=== PATIENT | female | born 1980 | race Caucasian/White ===

== ENCOUNTER 2016-11-28 19:01 | Emergency (ER) | payer OTHER ==
[2016-11-28 20:09] LABS: Hematocrit 43.3 % (37.0-47.0); Hemoglobin 14.4 gm/dL (12.5-16.0); Mean Cell Volume 91.4 fl (78-100); Mean Corpuscular Hemoglobin 30.4 pg (27-31); Mean Corpuscular Hgb Conc 33.3 g/dl (32-36); Mean Platelet Volume 9.8 fl (6.0-9.5); Neutrophil # 4.2 K/mm3 (1.3-6.0); Neutrophil % 50.1 % (42-75.0); Platelet Count 274 K/mm3 (150-450); Red Blood Count 4.74 M/mm3 (4.2-5.4); White Blood Count 8.4 K/mm3 (4.0-10.5)
--- NOTE | 2016-11-28 20:16 | ERNOTE ---
Medical Problem HPI - Narrative Date of Service: 11/28/16 - General Chief Complaint: General Assessment Time Seen by Provider: 11/28/16 19:47 Source: patient Exam Limitations: no limitations - Immun/Allergies/Home Medications Immunizations: IMMUNIZATION HX Immunizations Up to Date Yes History of Influenza Vaccine No Hx Pneumococcal Vaccination No Allergies/Adverse Reactions: Allergies azithromycin Allergy (Verified 11/07/15 18:06) cephalexin [Cephalexin] Allergy (Verified 11/07/15 18:06) morphine Allergy (Verified 11/07/15 18:06) ivp dye Allergy (Uncoded 11/07/15 18:06) Home Medications: HOME MEDICATIONS HYDROcodone/ACETAMINOPHEN [Hydrocodon-Acetaminophn 10-325] 1 tab PO Q6H PRN [Last Taken Unknown] - History of Present History Narrative: Pt. comes in with c/o generalized malaise and intermittent fever and chills, Intermittent chest pain and SOB, but denies any recent illness or injuries.Pt. denies any alleviating factors or prehospaitl treatment. Review of Systems - Review of Systems Constitutional: Present: fever, chills, weakness, fatigue, malaise EYE: Present: no symptoms reported ENT: Present: sore throat. Absent: nose congestion, nasal drainage Respiratory: Present: shortness of breath, cough. Absent: orthopnea, wheezing Cardiology: Present: chest pain. Absent: palpitations, edema Gastrointestinal/Abdominal: Present: no symptoms reported. Absent: nausea, vomiting, diarrhea, abdominal pain Genitourinary: Present: no symptoms reported Musculoskeletal: Present: back pain, muscle pain, joint pain. Absent: neck pain Skin: Present: no symptoms reported. Absent: rash, change in hair/nails Neurological: Present: no symptoms reported. Absent: headache, dizziness/light- headedness, weakness, numbness, tingling All Other Systems: All systems neg except as marked - Patient's Past Medical History Patient History - Medical: Chronic Pain, Other Patient History - Cardiac/Respiratory: Arrhythmias, Asthma, Deep Vein Thrombosis Patient History - Cancer: Cervical Patient History - Surgical Procedures: Cholecystectomy, Tubal Ligation, T & A Patient History - Other: None LMP (females 10-50): last week LMP (Calendar): 09/07/15 - Family History Father Family History - Medical: Mother Family History - Cardiac/Respiratory: COPD, Hypertension - Social History Living Situations: home Abuse History: No History of abuse Psych History: No pertinent hx Does anyone smoke in the home?: Yes Smoking Status: Current every day smoker Patient requests Smoking Cessation Consult: No Initiate information on Smoking Cessation: No Alcohol Use: none Drug Use: none - Immunizations Immunizations Up to Date: Yes Hx Pneumococcal Vaccination: No History of Influenza Vaccine: No Physical Exam - Physical Exam General Appearance: Present: wd/wn, alert, no apparent distress Eye Exam: Normal inspection: bilateral, PERRL: bilateral, EOMI: bilateral Ears, Nose, Throat: Present: normal ENT inspection, normal pharynx Neck: Present: normal inspection, nontender. Absent: lymphadenopathy (R), lymphadenopathy (L) Respiratory: Present: no respiratory distress, normal breath sounds, no accessory muscle use, chest nontender, lungs clear Cardiovascular/Chest: Present: regular rate, rhythm, no murmur, normal peripheral pulses ED Progress - Date and Time Seen: Date and Time: 11/28/16 21:05 Discussed with pt. that I feel that this is likely fibromyalgia. Pt. does not want to try any medications at this time and would like to discuss with her PCP first. Will discharge pt. home with instructions to follow up. - Results and Orders Patient's Lab Results:: I have reviewed the patient's lab results. - Vital Signs Patient's Vital Signs:: I have reviewed the patient's vital signs. Vital Signs: Vital Signs 11/28/16 19:20 Temperature 37.2 C Pulse Rate 65 Respiratory 18 Rate Blood Pressure 118/68 O2 Sat by Pulse 98 Oximetry - Progress/Reassessment Chief Complaint: General Assessment Progress:: Unchanged Departure - Departure Clinical Impression: Fibromyalgia Disposition: Home self-care Condition: Good Instructions: Muscle Pain, Adult Additional Instructions: Please follow up with primary provider as planned to discuss treatment
[2016-11-28 20:24] LABS: Urine Bilirubin Negative (NEGATIVE); Urine Ketone Negative (NEGATIVE); Urine Nitrite Negative (NEGATIVE); Urine Protein Negative (NEGATIVE); Urine Specific Gravity 1.015 SP.GR. (1.005-1.010); Urine Urobilinogen Normal (NORMAL)
[2016-11-28 20:28] LABS: Troponin I Less than 0.017 ng/ml (0.00-0.10)
[2016-11-28 20:31] LABS: ALT 24 U/L (19-67); AST 12 U/L (0-48); Albumin * 3.7 gm/dl (3.4-5.0); Alkaline Phosphatase * 66 U/L (50-170); Anion Gap 8.7 mmol/L (6.8-13.8); BUN/Creatinine Ratio 13.8 (9.0-21.6); Bilirubin, Total 0.2 mg/dL (0.0-1.1); Blood Urea Nitrogen 11 mg/dL (3-23); Ca. Corrected For Albumin 9.8 mg/dL (8.4-10.2); Calcium * 9.9 mg/dL (7.9-10.9); Carbon Dioxide 30.9 mmol/L (24-32.6); Chloride 108 mmol/L (97-106); Glucose * 112 mg/dL (70-110); Potassium 3.6 mmol/L (3.4-4.6); Sodium 144 mmol/L (132-142); TSH * 2.044 uIU/mL (0.358-3.74); Total Protein 6.9 gm/dL (6.2-8.2)
[2016-11-28 20:35] LABS: Urine Appearance Cloudy; Urine Blood 10 /ul (NEGATIVE); Urine Color Yellow
[2016-11-28 20:36] LABS: Cocaine Ur Negative (NEGATIVE); Urine Barbiturate Negative (NEGATIVE); Urine Benzodiazepines Negative (NEGATIVE); Urine Opiates Negative (NEGATIVE); Urine PCP Negative (NEGATIVE); Urine THC Negative (NEGATIVE)
[2016-11-28 20:36] LABS: Urine Amorphous Sediment Many - 3+ (NONE-FEW); Urine Bacteria TRACE; Urine RBC None Seen /hpf (0-5); Urine WBC None Seen /hpf (0-5)
[2016-11-28] MEDS ORDERED: KETOROLAC TROMETHAMINE 30 MG/ML VIAL IV ONE (21:01)
[2016-11-28] MEDS ORDERED: NORMAL SALINE 1,000 ML IV ONE (21:01)
[2016-11-28 21:50] VITALS: BP 116/70
== END 2016-11-28 21:49 | disposition home or self-care (01) ==
LOC: ER 19:01
DX: M79.7 Fibromyalgia (principal); Z86.718 Personal history of other venous thrombosis and embolism; Z85.41 Personal history of malignant neoplasm of cervix uteri; F17.210 Nicotine dependence, cigarettes, uncomplicated

== ENCOUNTER 2017-02-10 19:14 | Observation (INO) | payer OTHER ==
[2017-02-10 19:36] LABS: Hematocrit 43.2 % (37.0-47.0); Hemoglobin 14.4 gm/dL (12.5-16.0); Mean Cell Volume 92.1 fl (78-100); Mean Corpuscular Hemoglobin 30.7 pg (27-31); Mean Corpuscular Hgb Conc 33.3 g/dl (32-36); Mean Platelet Volume 9.5 fl (6.0-9.5); Neutrophil # 5.1 K/mm3 (1.3-6.0); Neutrophil % 59.8 % (42-75.0); Platelet Count 289 K/mm3 (150-450); Red Blood Count 4.69 M/mm3 (4.2-5.4); Red Cell Distribution Width 13.7 % (11.5-14.0); White Blood Count 8.5 K/mm3 (4.0-10.5)
--- NOTE | 2017-02-10 19:46 | ERNOTE ---
Medical Problem HPI - General Chief Complaint: Drug Overdose Source: patient, family Exam Limitations: no limitations - Immun/Allergies/Home Medications Immunizations: IMMUNIZATION HX Immunizations Up to Date Yes History of Influenza Vaccine Yes Hx Pneumococcal Vaccination No Allergies/Adverse Reactions: Allergies azithromycin Allergy (Verified 11/07/15 18:06) cephalexin [Cephalexin] Allergy (Verified 11/07/15 18:06) morphine Allergy (Verified 11/07/15 18:06) ivp dye Allergy (Uncoded 11/07/15 18:06) Home Medications: HOME MEDICATIONS HYDROcodone/ACETAMINOPHEN [Hydrocodon-Acetaminophn 10-325] 1 tab PO Q6H PRN [Last Taken Unknown] LORazepam [Ativan] 0.5 mg PO TID PRN 02/10/17 [Last Taken Unknown] - History of Present History Narrative: Patient has been going through a host of fairly intense emotional and psychological stress over the last year. She is going through a very recent breakup and was finalized in the last few days and her depression got the best of her and she took an unknown quantity of lorazepam in order to go to sleep and hopefully no wake up in her words. Patient is drowsy however she is able to answer all questions. Timing: constant Severity: moderate Review of Systems - Review of Systems Constitutional: Present: See HPI, other - drowsy EYE: Present: no symptoms reported ENT: Present: no symptoms reported Respiratory: Present: no symptoms reported Cardiology: Present: no symptoms reported Gastrointestinal/Abdominal: Present: no symptoms reported Genitourinary: Present: no symptoms reported Musculoskeletal: Present: no symptoms reported Skin: Present: no symptoms reported Neurological: Present: depressed, emotional problems Endocrine: Present: no symptoms reported Hematologic/Lymphatic: Present: no symptoms reported Psych: Present: no symptoms reported - Patient's Past Medical History Patient History - Medical: Anxiety, Chronic Pain, Depression, Other Patient History - Cardiac/Respiratory: Arrhythmias, Asthma, Deep Vein Thrombosis Patient History - Cancer: Cervical Patient History - Surgical Procedures: Cholecystectomy, Tubal Ligation, T & A Patient History - Other: None LMP (Calendar): 09/07/15 - Family History Father Family History - Medical: Mother Family History - Cardiac/Respiratory: COPD, Hypertension - Social History Living Situations: alone Abuse History: No History of abuse Psych History: No pertinent hx, Hx of Anxiety, Hx of Depression Does anyone smoke in the home?: Yes Smoking Status: Current every day smoker Alcohol Use: occasionally Drug Use: none - Immunizations Immunizations Up to Date: Yes Hx Pneumococcal Vaccination: No History of Influenza Vaccine: Yes Physical Exam - Physical Exam General Appearance: Present: wd/wn, alert, moderate distress, other - drowsy Head Exam: Present: normal inspection, no evidence of injury Eye Exam: Normal inspection: bilateral, PERRL: bilateral Ears, Nose, Throat: Present: normal ENT inspection, H, normal pharynx Neck: Present: normal inspection, nontender Respiratory: Present: no respiratory distress, normal breath sounds, no accessory muscle use, chest nontender, lungs clear Cardiovascular/Chest: Present: regular rate, rhythm, no murmur, normal peripheral pulses Gastrointestinal/Abdominal: Present: normal bowel sounds, nontender, nondistended, soft, no organomegaly Rectal Exam: Present: deferred Back Exam: Present: normal inspection, normal range of motion Extremity Exam: Present: normal inspection, non-tender, no edema, normal range of motion Neurological Exam: Present: alert, oriented, normal mood/affect Skin Exam: Present: normal color, warm/dry Lymphatic Exam: Present: no adenopathy ED Progress - Vital Signs Vital Signs: Vital Signs 02/10/17 02/10/17 19:18 19:26 Temperature 36.6 C Pulse Rate 64 67 Respiratory 18 Rate Blood Pressure 119/67 O2 Sat by Pulse 98 Oximetry - Progress/Reassessment Chief Complaint: Drug Overdose - Transfer of Care Physician Sign Out: Toni Fox Receiving Physician: Natalia Art Departure - Departure Clinical Impression: Suicidal ideation Depression Qualifiers: Depression Type: premenstrual dysphoric disorder Qualified Code(s): F32.81 - Premenstrual dysphoric disorder Benzodiazepine (tranquilizer) overdose Qualifiers: Encounter type: initial encounter Injury intent: intentional self-harm Qualified Code(s): T42.4X2A - Poisoning by benzodiazepines, intentional self- harm, initial encounter Referrals: Samuel Lainez MD [Primary Care Provider] -
[2017-02-10 19:49] LABS: ALT 19 U/L (19-67); AST 7 U/L (0-48); Albumin * 3.7 gm/dl (3.4-5.0); Alkaline Phosphatase * 76 U/L (50-170); BUN/Creatinine Ratio 15.8 (9.0-21.6); Bilirubin, Total 0.2 mg/dL (0.0-1.1); Blood Urea Nitrogen 12 mg/dL (3-23); Ca. Corrected For Albumin 9.5 mg/dL (8.4-10.2); Calcium * 9.6 mg/dL (7.9-10.9); Carbon Dioxide 29.2 mmol/L (24-32.6); Chloride 105 mmol/L (97-106); Glucose * 111 mg/dL (70-110); Potassium 4.2 mmol/L (3.4-4.6); Salicylate 2.9 mg/dL (2.8-20.0); Sodium 139 mmol/L (132-142); Total Protein 7.2 gm/dL (6.2-8.2)
[2017-02-10 20:10] LABS: Urine Appearance Clear; Urine Bilirubin Negative (NEGATIVE); Urine Blood 25 /ul (NEGATIVE); Urine Color Yellow; Urine Ketone Negative (NEGATIVE); Urine Nitrite Negative (NEGATIVE); Urine Protein Negative (NEGATIVE); Urine RBC None Seen /hpf (0-5); Urine Specific Gravity <=1.005 SP.GR. (1.005-1.010); Urine Urobilinogen Normal (NORMAL); Urine WBC None Seen /hpf (0-5); Urine pH 6.5 pH (5.0-7.0)
[2017-02-10 20:11] LABS: Urine Amorphous Sediment Moderate - 2+ (NONE-FEW); Urine Bacteria 2+
[2017-02-10] MEDS ORDERED: NORMAL SALINE 1,000 ML IV ONE ×2 (20:17→20:18)
[2017-02-10 20:20] LABS: Cocaine Ur Negative (NEGATIVE); Urine Barbiturate Negative (NEGATIVE); Urine Benzodiazepines Negative (NEGATIVE); Urine Opiates Negative (NEGATIVE); Urine PCP Negative (NEGATIVE); Urine THC Negative (NEGATIVE)
[2017-02-10 22:00] VITALS: BP 124/80
--- NOTE | 2017-02-10 22:04 | HP ---
Chief Complaint - Chief Complaint Date of Service: 02/10/17 Time of Service: 22:04 Chief Complaint: ativan overdose today. History of Present Illness: [H/O obtained from best friend and mother]. Patient is a 36-year-old WF with a h/o anxiety/depression, migraines, morbid obesity[BMI 40.5] tobacco abuse who was brought to the ER after she she had taken 20-25 tablets/30 [0.5 mg] of lorazepam due to severe depression and multiple other reasons according to her mother: 1. She suffers from PMDD. 2. Her boyfriend of one year left her today. Patient is somnolent and does answer some questions sporadically. Her gases on RA: PH 7.43 PCO2 33 PO2 79.5. The remainder of her tox screen was negative. She was admitted for further care and treatment. - Patient's Past Medical History Patient History - Medical: Anxiety, Chronic Pain, Depression Patient History - Cardiac/Respiratory: Arrhythmias, Asthma, Deep Vein Thrombosis Patient History - Cancer: Cervical Patient History - Surgical Procedures: Cholecystectomy, Tubal Ligation, T & A Patient History - Other: None LMP (females 10-50): now LMP (Calendar): 09/07/15 - Family History Father Family History - Medical: - 61prostate cancer in 2016 Family History - Cancer: History Unknown Mother Family History - Medical: Other - 55HTN, severe RAS, COPD - Social History Living Situations: home Abuse History: No History of abuse Psych History: No pertinent hx, Hx of Anxiety, Hx of Depression Does anyone smoke in the home?: Yes Smoking Status: Current every day smoker - three fourths of a pack daily since age 19 Have you smoked in the past 12 months: Yes Do you dip or chew tobacco: No Patient requests Smoking Cessation Consult: No Initiate information on Smoking Cessation: Yes Alcohol Use: heavy - 12 beers +3 shots every 2 weeks Drug Use: none - Immunizations Immunizations Up to Date: Yes Hx Pneumococcal Vaccination: No History of Influenza Vaccine: Yes Review Of Systems (GEN) - Review of Systems Additional Comments: According to mother who was present patient has been significantly depressed over the last few days Allergies/Adverse Reactions: Allergies Allergy/AdvReac Type Severity Reaction Status Date / Time azithromycin Allergy Verified 02/10/17 22:04 cephalexin [Cephalexin] Allergy Verified 02/10/17 22:04 morphine Allergy Verified 02/10/17 22:04 ivp dye Allergy Uncoded 11/07/15 18:06 Home Medications: HOME MEDICATIONS HYDROcodone/ACETAMINOPHEN [Hydrocodon-Acetaminophn 10-325] 1 tab PO Q6H PRN [Last Taken Unknown] LORazepam [Ativan] 0.5 mg PO TID PRN 02/10/17 [Last Taken 02/10/17] Exam - Exam Vital Signs: Vital Signs - Last Taken Temp 36.6 C 02/10/17 22:00 Pulse 87 02/10/17 22:00 Resp 18 02/10/17 22:00 BP 124/80 02/10/17 22:00 Pulse Ox 100 02/10/17 22:00 Constitutional: Present: Morbidly obese, Looks Older than stated age - Somnolent and unable to answer any questions. ENT Exam: Present: moist mucous membranes Eye Exam: bilateral eye: PERRL, EOMI Neck: Present: normal inspection, trachea midline Breasts: Present: Exam deferred Respiratory: Present: lungs clear, normal breath sounds, no accessory muscle use Cardiovascular/Chest: Present: regular rate, rhythm. Absent: no murmur Peripheral Pulses: carotid (R): 2+, carotid (L): 2+ Abdomen: Present: Normal bowel sounds, soft, nondistended, obese Extremity: Present: non-tender. Absent: pedal edema Skin Exam: Present: normal color, warm/dry Neurologic: Present: other - Unable to examine as patient is somnolent Appearance: Present: other - Cannot be tested Eye contact: Present: other - Cannot be tested Thoughts: Present: other - Cannot be tested Diagnostic Studies: Laboratory Tests 02/10/17 19:33 WBC 8.5 Hgb 14.4 Hct 43.2 Plt Count 289 02/10/17 19:33 Plasma Sodium 139 Potassium 4.2 Chloride 105 Carbon Dioxide 29.2 BUN 12 Creatinine 0.76 Est GFR (Non-Af Amer) 92 Random Glucose 111 H Calcium Adj for Albumin 9.5 Total Bilirubin 0.2 AST 7 ALT 19 Alkaline Phosphatase 76 Total Protein 7.2 Albumin 3.7 02/10/17 02/10/17 19:33 20:00 Salicylates 2.9 Urine Opiates Screen Negative Acetaminophen Less than 0.2 L Barbiturate Screen Negative Ur Phencyclidine Scrn Negative Urine Amphetamine Negative U Benzodiazepines Scrn Negative Urine Cocaine Screen Negative Urine Marijuana (THC) Negative Ethyl Alcohol Less than 3.0 Assessment/Plan - Narrative Narrative: 1. Suicide attempt with drug overdose: Patient had taken lorazepam/Ativan presumably 20-25 tablets [0.5 mg]. She had also refilled hydrocodone/acetaminophen 10/325 mg #90 today. Hydrate in the form of NS at 150 ml/hr. Tox screen essentially benign. Obtain psych consult on 02/11/2017. 2. Anxiety/depression/PMDD: Patient has been treated with lorazepam/Prozac in the past according to the mother. No information is available. 3. Chronic pain: On hydrocodone/acetaminophen 10/325 mg one tablet 3 times a day. 4. Morbid obesity: BMI 40.5. 5. Substance abuse: History of EtOH intake and nicotine intake. Addendum: The patient started feeling better at about 11 PM and her IV infiltrated. Refused to have another IV started. She signed out AMA at approximately 5 AM on 02/11/2017 and was taken home by her mother was present throughout the hospitalization.
== END 2017-02-11 05:00 | disposition left against medical advice (07) ==
LOC: ER 19:14 → UNDOADMOB 20:33 → MS 20:33 → SCU 20:54
PROVIDERS: ADMIT Internal Medicine; ATTEND Internal Medicine
PROC: 4A033R1 Measurement of Arterial Saturation, Peripheral, Percutaneous Approach (ICD-10-PCS; principal; 2017-02-10)
DX: T42.4X2A Poisoning by benzodiazepines, intentional self-harm, initial encounter (principal); R40.0 Somnolence; Y92.019 Unspecified place in single-family (private) house as the place of occurrence of the external cause; F32.81 Premenstrual dysphoric disorder; F41.8 Other specified anxiety disorders; E66.01 Morbid (severe) obesity due to excess calories; Z68.41 Body mass index [BMI] 40.0-44.9, adult
CPT/HCPCS: 36415; 36600; 80053; 80307; 81001; 82803; 84703; 85025; 87086; 93005; 99285; G0378; G0480; G0481

== ENCOUNTER 2017-06-22 20:53 | Emergency (ER) | payer OTHER ==
[2017-06-22] MEDS ORDERED: NORMAL SALINE 1,000 ML IV ONE ×2 (21:05→22:23)
--- NOTE | 2017-06-22 21:14 | ERNOTE ---
Psychological HPI - Date Date of Service: 06/22/17 - General Source: Reports: patient, EMS - Immun/Allergies/Home Medications Allergies/Adverse Reactions: Allergies azithromycin Allergy (Verified 02/10/17 22:04) cephalexin [Cephalexin] Allergy (Verified 02/10/17 22:04) morphine Allergy (Verified 02/10/17 22:04) ivp dye Allergy (Uncoded 11/07/15 18:06) Home Medications: HOME MEDICATIONS HYDROcodone/ACETAMINOPHEN [Hydrocodon-Acetaminophn 10-325] 1 tab PO Q6H PRN [Last Taken Unknown] LORazepam [Ativan] 0.5 mg PO TID PRN 02/10/17 [Last Taken 02/10/17] - History of Present Illness Narrative: This is a 36-year-old female brought to the emergency department by EMS. EMS received a call from the patient's daughter who says that the patient has been drinking and took a bunch of keep pills to try and kill herself. The patient denies this. She says she has been drinking but has not taken any pills. She denies saying she wanted to hurt herself. She denies ever having history of suicidal ideation or attempts in the past. The patient says that she had "a little" to drink. This consisted of 5 shots of hard liquor at least 2 pitchers of beer. This was over the last 3 hours. Patient denies any nausea or vomiting she denies shortness of breath she denies any complaints and says "I want to go home" Time Seen by Provider: 06/22/17 20:57 Review of Systems - Review of Systems Constitutional: Present: no symptoms reported EYE: Present: no symptoms reported ENT: Present: no symptoms reported Respiratory: Present: no symptoms reported Cardiology: Present: no symptoms reported Gastrointestinal/Abdominal: Absent: nausea, vomiting, diarrhea, constipation, abdominal pain Genitourinary: Present: no symptoms reported Musculoskeletal: Present: no symptoms reported Skin: Present: no symptoms reported Neurological: Present: no symptoms reported, other - patient reports "I'm drunk " Endocrine: Present: no symptoms reported Hematologic/Lymphatic: Present: no symptoms reported Psych: Present: no symptoms reported All Other Systems: All systems neg except as marked - Patient's Past Medical History Patient History - Medical: Anxiety, Chronic Pain, Depression Patient History - Cardiac/Respiratory: Arrhythmias, Asthma, Deep Vein Thrombosis Patient History - Cancer: Cervical Patient History - Surgical Procedures: Cholecystectomy, Tubal Ligation, T & A Patient History - Other: None - Family History Father Family History - Medical: - 61prostate cancer in 2016 Family History - Cardiac/Respiratory: History Unknown Family History - Cancer: History Unknown Mother Family History - Medical: Other - 55HTN, severe RAS, COPD Family History - Cardiac/Respiratory: COPD, Hypertension Family History - Cancer: No pertinent family hx - Social History Abuse History: No History of abuse Psych History: No pertinent hx, Hx of Anxiety, Hx of Depression - Immunizations Immunizations Up to Date: Yes Hx Pneumococcal Vaccination: No History of Influenza Vaccine: Yes Psychological Exam - Exam General Appearance: Present: other - patient is intoxicated laying in bed, crying and mumbling moves all extremities airway is controlled by herself no drooling Head Exam: Present: normal inspection, no evidence of injury Neurological: Present: other - patient is intoxicated and stuporous. Moves all extremities. Thoughts/Hallucinations: Present: other - patient denies hallucinations. She denies homicidal ideation. She denies suicidal ideation Behavior/Eye Contact/Speech: Present: other - patient is intoxicated. No eye contact is made. Patient laying with her eyes closed. Speaks fairly articulately. ENT Exam normal except (see below): Yes Eye Exam: Normal inspection: bilateral, PERRL: bilateral, EOMI: bilateral Ears, Nose, Throat: Present: normal ENT inspection, normal pharynx Neck: Present: normal inspection, nontender Respiratory: Present: no respiratory distress, normal breath sounds, no accessory muscle use, lungs clear Cardiovascular/Chest: Present: regular rate, rhythm, no murmur, normal peripheral pulses Gastrointestinal/Abdominal: Present: normal bowel sounds, nontender, nondistended, soft, no organomegaly Back Exam: Present: normal inspection, normal range of motion, no CVA tenderness , no vertebral tenderness Extremity Exam: Present: normal inspection, normal range of motion, no edema Skin Exam: Present: normal color, warm/dry, no cyanosis Lymphatic Exam: Present: no adenopathy ED Progress - Results and Orders Patient's Lab Results:: I have reviewed the patient's lab results. - Vital Signs Patient's Vital Signs:: I have reviewed the patient's vital signs. Vital Signs: Vital Signs 06/22/17 21:09 Pulse Rate 71 - Progress/Reassessment Progress:: Improved Progress Note-Subjective: 06/23/17 01:06 The patient denies being suicidal. The patient says that she never said anyone that she was trying to hurt herself. She did arrive with Valium tablets however they were from prescription more than a year old. The patient says she has not taken any of this. Her drug screen backs this up. Nevertheless I've contracted with safety for the patient. She is instructed she cannot drive until 8 AM. She was able to repeat these instructions to me. She will call the ambulance and return to the ER if she has thoughts or impulses to hurt herself. Otherwise she will follow-up with her family doctor Departure Clinical Impression: Alcohol intoxication Qualifiers: Complication of substance-induced condition: uncomplicated Qualified Code(s): F10.920 - Alcohol use, unspecified with intoxication, uncomplicated - Departure Disposition: Home self-care Condition: Fair Instructions: Alcohol Intoxication Additional Instructions: As we discussed, you have not related to me any signs or symptoms of suicidal ideation. I would strongly recommend that he stop drinking so excessively. Call your family doctor and set up a follow-up appointment. You have agreed to consent for safety. This means that you will call the ambulance to come back to the ER or return to the ER yourself if you have thoughts of hurting herself. Return for any new concerning symptoms Referrals: Samuel Lainez MD [Primary Care Provider] -
[2017-06-22 21:38] LABS: Hematocrit 42.7 % (37.0-47.0); Hemoglobin 14.6 gm/dL (12.5-16.0); Mean Cell Volume 91.2 fl (78-100); Mean Corpuscular Hemoglobin 31.2 pg (27-31); Mean Corpuscular Hgb Conc 34.2 g/dl (32-36); Mean Platelet Volume 9.4 fl (6.0-9.5); Neutrophil # 4.9 K/mm3 (1.3-6.0); Neutrophil % 49.6 % (42-75.0); Platelet Count 276 K/mm3 (150-450); Red Blood Count 4.68 M/mm3 (4.2-5.4); White Blood Count 9.9 K/mm3 (4.0-10.5)
[2017-06-22 21:43] LABS: Acetaminophen * 1.2 mcg/mL (10.0-30.0); Albumin * 3.6 gm/dl (3.4-5.0); Anion Gap 12.6 mmol/L (6.8-13.8); BUN/Creatinine Ratio 14.3 (9.0-21.6); Bilirubin, Total 0.2 mg/dL (0.0-1.1); Ca. Corrected For Albumin 9.6 mg/dL (8.4-10.2); Calcium * 9.6 mg/dL (7.9-10.9); Carbon Dioxide 28.1 mmol/L (24-32.6); Potassium 3.7 mmol/L (3.4-4.6); Salicylate 3.3 mg/dL (2.8-20.0); TSH * 1.508 uIU/mL (0.358-3.74); Total Protein 6.9 gm/dL (6.2-8.2)
[2017-06-22 21:48] LABS: Cocaine Ur Negative (NEGATIVE); Urine Barbiturate Negative (NEGATIVE); Urine Benzodiazepines Negative (NEGATIVE); Urine Opiates Negative (NEGATIVE); Urine PCP Negative (NEGATIVE); Urine THC Negative (NEGATIVE)
[2017-06-22 21:51] LABS: Urine Appearance Clear; Urine Bilirubin Negative (NEGATIVE); Urine Blood 250 /ul (NEGATIVE); Urine Color Yellow; Urine Ketone Negative (NEGATIVE); Urine Nitrite Negative (NEGATIVE); Urine Protein Negative (NEGATIVE); Urine Urobilinogen Normal (NORMAL)
[2017-06-22 21:52] LABS: Urine Bacteria None Seen; Urine RBC 0-5 /hpf (0-5); Urine WBC 0-5 /hpf (0-5)
[2017-06-23 01:32] VITALS: BP 101/54
== END 2017-06-23 01:56 | disposition home or self-care (01) ==
LOC: ER 20:53
DX: F10.920 Alcohol use, unspecified with intoxication, uncomplicated (principal); Z85.41 Personal history of malignant neoplasm of cervix uteri; Z86.718 Personal history of other venous thrombosis and embolism
CPT/HCPCS: 36415; 80053; 80307; 81001; 84443; 84703; 85025; 93005; 99282; G0480; G0481